=== PATIENT | female | born 1975 | race Caucasian/White ===

== ENCOUNTER 2017-05-31 21:45 | Emergency (ER) | payer OTHER ==
[~2017-05-31] VITALS: Ht 162.6 cm; Wt 77.1 kg
[2017-05-31] MEDS ORDERED: METOPROLOL TART25 MG ×2 (22:07→22:08)
[2017-05-31] MEDS ORDERED: LOSARTAN POTASS25 MG (22:07)
--- NOTE | 2017-06-01 18:06 | EKG ---
[facility] [address] [facility] [address] [facility] [place] [address] Signed Sinus tachycardia Otherwise normal ECG No previous ECGs available Confirmed by PORFIRIO YAN MD ([id number]) on 06/01/2017 6:06:19 PM Electronically Signed By: PORFIRIO YAN MD 06/01/17 1806 PATIENT NAME: LYLE MELLO Electrocardiogram DATE OF : 73 PHYSICIAN: PORFIRIO YAN MD REPORT #: [id number] REPORT IS CONFIDENTIAL AND NOT TO BE RELEASED WITHOUT AUTHORIZATION
[2017-06-03] MEDS ORDERED: LOSARTAN POTASS25 MG PO (12:08)
[2017-06-03] MEDS ORDERED: BACLOFEN10 MG PO (14:24)
[2017-06-03] MEDS ORDERED: CIPRO250 MG PO (14:24)
== END 2017-05-31 23:50 | disposition home or self-care (01) ==
LOC: ED 21:45
DX: R07.9 Chest pain, unspecified (principal); I10 Essential (primary) hypertension; Z88.8 Allergy status to other drugs, medicaments and biological substances; Z79.899 Other long term (current) drug therapy
CPT/HCPCS: 71010; 80053; 84484; 85025; 85379; 93005; 93010; 99284

== ENCOUNTER 2017-06-07 09:26 | Observation (INO) | payer OTHER ==
[~2017-06-07] VITALS: Ht 162.6 cm; Wt 76.2 kg
[~2017-06-07 09:26] MED LIST: BACLOFEN10 MG PO; CIPRO250 MG PO; LOSARTAN POTASS25 MG; LOSARTAN POTASS25 MG PO; METOPROLOL TART25 MG
[2017-06-07] MEDS ORDERED: METOPROLOL TART25 MG PO (11:17)
--- NOTE | 2017-06-07 11:39 | NUR ---
IV STARTED AND GAVE 10MLS OF BLOOD TO SPECIAL DAY CLASS TEACHER. IV SITE FLUSHED WELL. IV SITE SALINE LOCKED AT THIS TIME.
--- NOTE | 2017-06-07 11:50 | NUR ---
ADMITED TO ROOM 130 VIA W/C WITH HER DAUGHTER AT THE BEDSIDE. PT VERY TALKATIVE AND APPEARS TO BE COMFORTABLE. WHEN ASKED IF SHE HAS CP PAIN YES! 01/25 AND GOES TO MY BACK AND SOMETIMES TO MY LEFT ARM. DR YAN INTO SEE PT AT THIS TIME. SOL GARCIA INPLACE AT THIS TIME.
--- NOTE | 2017-06-07 13:30 | NUR ---
PT PLACED ON TELE # 4 DUE TO SHE WILL NEED TO GO TO IMAGING FOR A TEST THIS AFTERNOON. PT REMAINS NPO AT THIS TIME. TWO WARM BLANKETS GIVEN AT THIS TIME. PT IN BED READING BOOK. LR BOLUS COMPLETED AT THIS TIME. AND PRIMARY FLUIDS RUNNING AT THIS TIME.
--- NOTE | 2017-06-07 14:59 | NUR ---
pt to xr at 1430 via wc.
--- NOTE | 2017-06-07 15:13 | NUR ---
PT RETURNED FROM XRAY, CLEAR LIQUID TRAY ORDERED AND FRESH ICE WQATER GIVEN AT THIS TIME. PT ABLE TO GET SELF FROM W/C TO BED WITHOUT ASSISTANCE. PT ENCOURAGED TO DRINK FLUIDS TO HELP MOVE THE BERRIUM THROUGHT HER SYSTEM.
--- NOTE | 2017-06-07 15:48 | NUR ---
PT WORKING ON HER CLEAR LIQUID TRAY AT THIS TIME. FAMILY INTO VISIT AT THIS TIME. PT ASKING FOR SOME KIND OF MEDICATION TO HELP WITH SLEEP TONIGHT. PT HAS NOT C/O CHEST PAIN AT THIS TIME.
--- NOTE | 2017-06-07 16:05 | NUR ---
REPORT CALLED TO BOSSMAN ABDULLAHI ALL QUESTIONS ANSWERED AT THIS TIME. PT TRANSFERTED TO ROOM 117 AT THIS TIME WITH ALL PERSONAL BELONGINGS. PT DAUGHTER PRESENT ALSO WITH PT AND WALKED TO THE THE ROOM WITH STAFF.
--- NOTE | 2017-06-07 16:35 | NUR ---
PATIENT TO FLOOR VIA BED.DENIES PAIN AT THIS TIME. REPORTS MILD DIZZINESS WHILE STANDING TO GO THE BATHROOM. IV FLUID INFUSING WELL, TELE IN PLACE.NO APPARENT DISTRESS.
--- NOTE | 2017-06-07 17:30 | NUR ---
PATIENT RESTING IN BED,REPORT MILD NAUSEA, DENIES THE NEED FOR ANTIEMETIC MED. REPORTS MILD EPIGASTRIC PAIN. ASSESSMENT DONE. FAMILY AT BEDSIDE. BEEF BROTH AND TEA PER PATIENT REQUEST
--- NOTE | 2017-06-07 18:37 | NUR ---
PATIENT TRANSFER FROM CCU TO MED-SURG THIS PM. REPORTS 2/10 EPIGASTRIC PAIN.MILD NAUSEA AND DENIES THE NEEDS FOR ANTIEMETIC MED. TELE#[address] IV FLUID INFUSING WELL. INDEPENDENT IN ROOM.
--- NOTE | 2017-06-07 19:30 | NUR ---
RECIEVED REPORT FROM DAY SHIFT NURSE. PT RESTING IN BED. STATES SHE FEELS A LITTLE "DIZZY." TOLD HER NOT TO GET OOB WITHOUT A NURSE. PT AWARE OF CALL LIGHT. NO NEEDS AT THIS TIME.
--- NOTE | 2017-06-07 20:10 | NUR ---
NURSE NOTIFIED RE VITAL SIGNS.
--- NOTE | 2017-06-07 20:15 | NUR ---
PT RESTING IN BED. INTERMEDIATE TEACHER OBTAINED BP WHICH WAS ELEVATED. ADMINISTERED CARDIZEM, WILL RECHECK IN 1 HOUR. LUNGS CLEAR, HR REGULAR, NO EDEMA, FAINT BUT PALPABLE PEDAL PULSES. PT STATES HER ARMS FEEL VERY WEAK AND SHE JUST "DOESNT FEEL GOOD." I TOLD HER THERE IS NAUSEA MEDICATION AVAILABLE IF SHE IS FEELING NAUSEOUS, PT DENIES AT THIS TIME. PT DENIES FURTHER NEEDS. CALL [place] IN REACH.
--- NOTE | 2017-06-07 21:20 | NUR ---
SERIALS LIBRARIAN RECHECKED BP. CALLED MD WITH RESULTS. OBTIANED NEW ORDER FOR BP MED.
--- NOTE | 2017-06-07 21:57 | NUR ---
PT UP TO BATHROOM WITH SBA. STEADY ON HER FEET. STATES SHE FEELS "FUNNY" LIKE HER BODY IS HEAVY.PT VOIDED. BACK TO BED. DENIES FURTHER NEEDS.
--- NOTE | 2017-06-07 23:08 | NUR ---
OBTAINED BP. BP STILL ELEVATED. PT ALSO C/O PAIN /10 IN HER CHEST AND BACK-STATES IT HAS BEEN THE SAME PAIN WHICH SHE HAS BEEN HAVING. NO C/O HEARTBURN. CALLED , OBTIANED ORDER. PT ALSO C/O FEELING THAT HER "EYES ARE GOING TO BULGE OUT OF HER HEAD." MD AWARE. CALL RAINA IN REACH.
--- NOTE | 2017-06-07 23:40 | NUR ---
PT WAS ALSO C/O FEELING ANXIOUS. I HAD TO CALL MD BACK TO INFORM HIM. OBTAINED ORDER FOR ATARAX PRN ANXIETY. PT RESTING IN BED. STATES HER EYES STILL FEEL LIKE THEY ARE BULGING. PT STATES THIS HAPPENS TO HER AT HOME SOMETIMES. ADMINISTERED 1 X DOSE OF CARDIZEM AND ATARAX. WATER PITCHER FILLED. PT DENIES FURTHER NEEDS. CALL LIGHT IN REACH.
--- NOTE | 2017-06-08 01:15 | NUR ---
PT RESTING IN BED. STATES HER EYES DONT FEEL LIKE THEY'RE BULGING ANYMORE, BUT SHE FEELS LIKE HER HEART IS BEATING FAST. PULSE RATE 100-110 AT REST, PT STATES SHE THINKS SHE WOULD FEEL BETTER IF SHE WENT FOR A WALK. AMBULATED PT AROUND M/S HALLWAY. ADMINISTERED MORE ATARAX TO HELP HER RELAX. WHEN I FIRST CAME INTO THE ROOM I CHECKED HER PULSE RATE AND IT WAS ABOUT 115, I SAT AND TALKED WITH HER IT WENT DOWN TO 100. PT VOIDED, BACK TO BED. DENIES NEEDS. CALL LIGHT IN REACH.
--- NOTE | 2017-06-08 03:38 | NUR ---
PT RESTING. STATES SHE FEELS BETTER. NO C/O PAIN. LUNGS CLEAR, HR REG, BS ACTIVE. DENIES NEEDS. NEW BAG IVF INFUSING. CALL [place] IN REACH.
--- NOTE | 2017-06-08 04:45 | NUR ---
PT SLEEPING. IVF INFUSING W/O DIFFICULTY, CALL LIGHT IN REACH.
--- NOTE | 2017-06-08 06:33 | NUR ---
PT RESTING IN BED. STATES SHE SLEPT VERY WELL LAST NIGHT AFTER I GAVE HER SECOND DOSE OF ATARAX. PT HAS NO C/O AT THE MOMENT, STATES SHE FEELS GOOD THIS MORNING. I TOLD HER NOT TO DRINK ANYTHING AFTER 8AM FOR THE PROCEDURE. PT VERBALIZED SHE UNDERSTOOD. DELIVERED HOT TEA AND JELLO. PT DENIES FURTHER NEEDS. CALL LIGHT IN REACH.
--- NOTE | 2017-06-08 09:11 | NUR ---
REPORT RECIEVED FROM BRADLY OCHOA. PT UP IN RESTROOM. AMBULATES WELL ON OWN. NO REPORTS OF DIZZINESS. BP STILL HIGH. ADMINISTERED CARDIZEM WITH SMALL SIP OF WATER.
--- NOTE | 2017-06-08 09:44 | CONS ---
[facility] [address], [place] [address] Signed DATE OF CONSULTATION: 06/07/2017 CONSULTING PHYSICIAN: Kelvin Koehler MD PROBLEM: Substernal severe pain, persistent, recurrent. HISTORY: This 41-year-old white woman was admitted by Dr. Castrejon today. She is an acquaintance of Lore Cabral MD, radiologist at [facility]. I was called by Dr. Cabral yesterday (Wednesday) asking for assistance with this patient, who had been to the emergency room several days previously for rather severe substernal pain. A rather comprehensive workup had been undertaken at that time, including an MRI of the head, neck, and chest, as she did have some vague numbness and tingling of the arms, EKG and enzyme to rule out myocardial infarction. She did undergo a cardiac stress test, which was negative. She had recurrent substernal pain and I saw her in my office yesterday and my assessment at that time was that she likely had esophageal spasm. As it turns out, I performed upper endoscopy on her in 2007, at which time she had a small hiatal hernia. The patient had recently been prescribed metoprolol for hypertension. She had for at least 20 years been trying to use a naturopathic approach to hypertension control. A plan was outlined for upper endoscopy to be performed tomorrow on June 08. Plans were initiated for this, but in trying to call and set up the details today in the office, she was nowhere to be found including at work. We subsequently found out that she had been admitted for observation under the direction of Dr. Castrejon and she had recurrent symptoms of substernal pain, which resulted in hypotension after taking nitroglycerin, which had been prescribed. I initiated Prilosec 20 mg a day yesterday and she admits that it has helped quite a bit. She is now in the hospital under observation showing no sign of arrhythmia or other similar problem. She feels much better than she did. Consideration is made for following through with the upper endoscopy as planned. Today in the hospital, she did undergo an upper GI under the order of Dr. Castrejon and interpreted by Dr. Cabral. I have reviewed that film, which does show a small hiatal hernia. No elicited reflux, however and no other anomalies, specifically corkscrew appearance or anything of that sort. PAST MEDICAL HISTORY: Does include hypertension, now getting under control. Prior Electronically Signed By: KELVIN KOEHLER MD 06/08/17 0944 PATIENT NAME: LYLE MELLO CONSULTATION DATE OF : 73 PHYSICIAN: KELVIN KOEHLER MD REPORT #: [id number] REPORT IS CONFIDENTIAL AND NOT TO BE RELEASED WITHOUT AUTHORIZATION [facility] [address] [place] [id number] Signed history of hiatal hernia without significant symptoms. SOCIAL HISTORY: She is . She is accompanied by her and other children. 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 REVIEW OF SYSTEMS: She has had no hematemesis or blood per rectum. Her pain has been epigastric and substernal primarily, some interscapular pain previously and some vague left upper abdominal pain as well. PHYSICAL EXAMINATION: GENERAL: She looks alert and oriented at this time. No sign of toxicity. NECK: Trachea is midline. LUNGS: She shows no sign of tachypnea. No audible wheeze. HEART: Regular. ABDOMEN: Nondistended and soft. EXTREMITIES: No clubbing, cyanosis, or edema. LAB STUDIES: At admission showed white count of 9.5, hematocrit 43.8, platelets 404,000. Electrolytes are normal. Sedimentation rate is elevated at 22. Liver enzymes normal. Protein 8.4, globulin 3.7. 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 She has shown no evidence of myocardial ischemia or anything of that sort. She does have hypertension, which is becoming under control at this time. I would recommend upper endoscopy be followed through with tomorrow as already scheduled. The risks of bleeding, infection, and perforation have been reviewed with her previously and were reviewed again. If she does have clinical appearance consistent with esophageal spasm, she may benefit markedly from a diltiazem based regimen as well as PPI medication. In general, 30 mg diltiazem t.i.d. This would be beneficial for esophageal spasm as well as hypertension, which she does have. We will plan to proceed with upper endoscopy tomorrow as planned. She can have diet as tolerated until midnight. After midnight, clear liquids only up until 8 a.m. Electronically Signed By: KELVIN KOEHLER MD 06/08/17 0944 PATIENT NAME: LYLE MELLO CONSULTATION DATE OF : 73 PHYSICIAN: KELVIN KOEHLER MD REPORT #: [id number] REPORT IS CONFIDENTIAL AND NOT TO BE RELEASED WITHOUT AUTHORIZATION [address] [address] Signed MD LOURDES Resendez/MODL /[id number] cc: Sarath Castrejon MD Electronically Signed By: KELVIN KOEHLER MD 06/08/17 0944 PATIENT NAME: FUNMILAYOLYLE VAIBHAV CONSULTATION DATE OF : 73 PHYSICIAN: KELVIN KOEHLER MD REPORT #: [id number] REPORT IS CONFIDENTIAL AND NOT TO BE RELEASED WITHOUT AUTHORIZATION
--- NOTE | 2017-06-08 10:42 | NUR ---
PATIENT UP TO BATHROOM AND BACK TO BED. REFUSED SHOWER. PATIENT HAS TOOTH BRUSH AND PASTE SET UP AT SINK. HANDS AND FACE WASHED. NO OTHER NEEDS AT THIS TIME.
--- NOTE | 2017-06-08 13:35 | NUR ---
PATIENT UP TO VOID. LR ON STRAIGHT TUBING HOOKED UP. PATIENT TO SURGERY WITH NURSE BRADLY GARCIA.
--- NOTE | 2017-06-08 14:17 | NUR ---
PT STILL OFF FLOOR WITH SURGERY. TAKEN TO DAY SURGERY AREA.
--- NOTE | 2017-06-08 15:15 | NUR ---
PT BACK TO FLOOR VIA STRETCHER WITH SURGERY RN. PT DROWSY BUT EASILY AWAKENED. DENIES PAIN. VS STABLE.
[2017-06-08] MEDS ORDERED: PANTOPRAZOLE SO40 MG PO (16:40)
[2017-06-08] MEDS ORDERED: DILTIAZEM ER180 MG PO (16:40)
--- NOTE | 2017-06-08 18:59 | NUR ---
PT DISCHARGED HOME WITH . IV REMOVED WNL. PT VERBALIZED UNDERSTANDING. VS STABLE. BELONGINGS SENT WITH PT. DENIES PAIN OR CONCERNS OR QUESTIONS.
--- NOTE | 2017-06-15 12:51 | OR ---
[facility] [address], [place] [address] Signed DATE OF OPERATION: 06/08/2017 SURGEON: Kelvin Koehler MD PREOPERATIVE DIAGNOSES: 1. Episodic severe disabling substernal pain, clinically consistent with esophageal spasm. 2. Known prior history of hiatal hernia. POSTOPERATIVE DIAGNOSES: Normal-appearing esophageal mucosa and moderate-sized hiatal hernia. PROCEDURE: Esophagogastroduodenoscopy with biopsy. ANESTHESIA: Intravenous sedation, fentanyl 100 mcg, Versed 3 mg. INDICATION: This 41-year-old white woman has been hospitalized since yesterday under the direction of Dr. Castrejon. I saw her on Wednesday on the weekend with over a week of episodes of substernal severe pain and interscapular pain. She has already undergone an MRI of the head, neck, and chest, which was normal as well as a cardiac stress test organized after emergency room visit, which was normal. She clinically has findings consistent with esophageal spasm related to reflux. I have performed upper endoscopy on her in 2007, which showed hiatal hernia, but no significant esophagitis. She is hospitalized having had recurrent symptoms yesterday and having taken nitroglycerin as prescribed, which caused possibly some lightheadedness. Since hospitalization, she has had no severe episodes and she does think that Prilosec, which was been prescribed, has improved her situation overall. It was previously anticipated she undergo upper endoscopy today and though she is hospitalized at this time, upper endoscopy would be appropriate. The risks of bleeding, infection, and perforation related to upper endoscopy were reviewed and understood. FINDINGS: Esophageal mucosa was entirely normal. There was no sign of Adkins's epithelium or neoplasm. There was definitely hiatal hernia, moderate in size. The stomach and duodenum were grossly normal. CLOtest was negative. DESCRIPTION OF PROCEDURE: The patient was brought to the endoscopy suite and given Electronically Signed By: KELVIN KOEHLER MD 06/15/17 3941 PATIENT NAME: LYLE MELLO OPERATIVE REPORT DATE OF : 73 PHYSICIAN: KELVIN KOEHLER MD REPORT #: [id number] REPORT IS CONFIDENTIAL AND NOT TO BE RELEASED WITHOUT AUTHORIZATION [facility] [address], [place] [address] Signed topical Hurricaine spray, hypopharyngeal anesthesia, and placed in lateral decubitus position. A bite block was placed after satisfactory intravenous sedation with full cardiopulmonary monitoring. An Olympus video upper endoscope was passed in the hypopharynx. The vocal cords appeared normal. The scope was advanced to the esophagus. Throughout its length, it was entirely normal. Scope was passed into the stomach, which was insufflated with air. Rugal folds appeared normal. The pylorus was normal. Scope was passed through it into the duodenum, which was also normal. Biopsies were taken of the duodenum and antrum for both PATRICIA and pathologic testing for the latter. Retroflexed view was undertaken, confirming a moderate-sized hiatal hernia. Further withdrawal of scope into the distal esophagus confirmed no evidence of Adkins's epithelium, inflammation, stricture, neoplasm, varices, or other issues. Biopsies were taken of the distal esophageal mucosa and the midportion. Upon withdrawal of the scope, careful inspection of the proximal esophagus showed no sign of neoplasm, Adkins's epithelium, or other abnormality. The scope was removed, and the patient was taken to the recovery room in good condition. CONCLUDING DIAGNOSIS: Most likely was esophageal spasm. This is likely reflux related. PLAN: Recommend PPI medication, Prilosec 20 mg daily and strong consideration for diltiazem 30 mg p.o. t.i.d. She will return to the regular [place] and may be a candidate for discharge later today depending on Dr. Castrejon's preference. MD LOURDES Resendez/CANDYL /[id number] cc: MD Lore Sloan MD Electronically Signed By: KELVIN KOEHLER MD 06/15/17 1251 PATIENT NAME: LYLE MELLO OPERATIVE REPORT DATE OF : 73 PHYSICIAN: KELVIN KOEHLER MD REPORT #: [id number] REPORT IS CONFIDENTIAL AND NOT TO BE RELEASED WITHOUT AUTHORIZATION [facility] [address] [place] [address] Signed KATIANA Spivey Electronically Signed By: KELVIN KOEHLER MD 06/15/17 1251 PATIENT NAME: LYLE MELLO OPERATIVE REPORT DATE OF : 73 PHYSICIAN: KELVIN KOEHLER MD REPORT #: [id number] REPORT IS CONFIDENTIAL AND NOT TO BE RELEASED WITHOUT AUTHORIZATION
== END 2017-06-08 18:45 | disposition home or self-care (01) ==
LOC: MS 09:26 → CCU 10:39 → MS 10:39 → CCU 10:39 → MS 16:25
PROVIDERS: Surgery; ADMIT Internal Medicine
PROC: 0DB78ZX Excision of Stomach, Pylorus, Via Natural or Artificial Opening Endoscopic, Diagnostic (ICD-10-PCS; 2017-06-08)
PROC: 0DB28ZX Excision of Middle Esophagus, Via Natural or Artificial Opening Endoscopic, Diagnostic (ICD-10-PCS; 2017-06-08)
PROC: 0DB38ZX Excision of Lower Esophagus, Via Natural or Artificial Opening Endoscopic, Diagnostic (ICD-10-PCS; 2017-06-08)
PROC: 0DB98ZX Excision of Duodenum, Via Natural or Artificial Opening Endoscopic, Diagnostic (ICD-10-PCS; principal; 2017-06-08 17:00)
DX: K21.0 Gastro-esophageal reflux disease with esophagitis (principal); K44.9 Diaphragmatic hernia without obstruction or gangrene; I10 Essential (primary) hypertension; E78.5 Hyperlipidemia, unspecified; Z79.899 Other long term (current) drug therapy; Z88.8 Allergy status to other drugs, medicaments and biological substances
CPT/HCPCS: 74230; 80053; 83735; 85025; 85651; 86140; 96361; 96374; 96376; 99152; 99153; G0378; J2250; J3010; J7120

== ENCOUNTER 2024-06-06 13:18 | Observation (INO) | payer OTHER ==
[~2024-06-06] VITALS: Ht 162.6 cm
[~2024-06-06 13:18] MED LIST changes: +CHLORTHALIDONE25 MG PO; +DILTIAZEM ER180 MG PO; +METOPROLOL TAR100 MG PO; +METOPROLOL TART25 MG PO; +PANTOPRAZOLE SO40 MG PO
--- OUTSIDE RECORDS SUMMARY | 2024-06-06 13:22 | XMS ---
PreManage Notification: LYLE MELLO Security Engineering Program Analyst Events No recent Security Events currently on file CRITERIA MET - [facility] - 2 Visits in 30 Days CARE PROVIDERS KISHORE GARZA Emergency Medicine Current PHONE: [phone] PORFIRIO YAN Internal Medicine Current PHONE: [phone] [facility]: [facility] Current \F\ [facility] PHONE: [phone] Doug has no Care Guidelines for this patient. E.D. VISIT COUNT (12 MO.) 2 KENAN Resendiz TOTAL 2 NOTE: Visits indicate total known visits. ED/UCC VISIT TRACKING (12 MO.) 06/06/2024 13:18 [facility] [place] TYPE: Emergency COMPLAINT: - BLOOD PRESSURE PROBLEM 06/04/2024 14:46 [facility] [place] TYPE: Emergency COMPLAINT: - FAINT DIAGNOSES: - Allergy status to other drugs, medicaments and biological substances - Dizziness and giddiness - Essential (primary) hypertension - Other usp (current) drug therapy - Syncope and collapse INPATIENT VISIT TRACKING (12 MO.) No inpatient visits to display in this time frame [email or web address]
[2024-06-06 13:48] LABS: BASOPHILS 0.6 % (0-2); EOSINOPHILS 1.3 % (0-6); HEMATOCRIT 40.1 % (35.0-50.0); HEMOGLOBIN 13.8 g/dL (12.0-18.0); LYMPHOCYTES 36.6 % (24-44); MCH 33.1 (27-36); MCHC 34.4 g/dl (30-36); MCV 96.1 fl (81-99); NEUTROPHILS 54.5 % (39-80); PLATELET COUNT 454 K/uL (140-440); RBC 4.17 M/ul (4.3-5.7); RDW 12.6 (10.5-15.0)
[2024-06-06] MEDS ORDERED: hydrALAZINE HCL 20 MG/ML VIAL IV PRN (14:00)
[2024-06-06 14:07] LABS: BILIRUBIN, URINE NEGATIVE (negative); BLOOD/HGB, URINE NEGATIVE (Negative); KETONE, URINE NEGATIVE (Negative); LEUK ESTERASE, URINE NEGATIVE (negative); NITRITE, URINE NEGATIVE (negative)
[2024-06-06 14:13] LABS: ALBUMIN 3.8 g/dL (3.4-5.0); ALBUMIN/GLOBULIN RATIO 0.95 (1.1-2.4); ANION GAP 16.2 (7-21); BILIRUBIN, TOTAL 0.4 ng/dL (0.2-1.0); BUN/CREATININE RATIO 17.97 (6.0-28.6); CALCIUM 9.2 mg/dL (8.5-10.1); CREATININE, SERUM 0.89 mg/dL (0.55-1.02); POTASSIUM 3.2 mmol/L (3.5-5.1); PROTEIN, TOTAL 7.8 g/dL (6.4-8.2); TSH, 3RD GENERATION 1.195 uIU/mL (0.358-3.740)
[2024-06-06 14:17] LABS: BACTERIA, URINE NONE SEEN /hpf (negative); CASTS, URINE NONE SEEN \\lpf; COLLECTION TYPE, URINE CLEAN CATCH; CRYSTALS, URINE NONE SEEN (0-1+); EPITHELIAL CELLS, URINE NONE SEEN /lpf (0-1+); RED BLOOD CELLS, URINE 0-1 /hpf (0-5); REFLEX CULTURE, URINE No (No)
[2024-06-06 14:31] LABS: AMPHETAMINES, URINE NEGATIVE (NEGATIVE); BARBITURATES, URINE NEGATIVE (NEGATIVE); BENZODIAZEPINE, URINE NEGATIVE (NEGATIVE); BUPRENORPHINE, URINE NEGATIVE (NEGATIVE); CANNABINOID, URINE NEGATIVE (NEGATIVE); COCAINE, URINE NEGATIVE (NEGATIVE); ECSTASY, URINE NEGATIVE (NEGATIVE); FENTANYL, URINE NEGATIVE (NEGATIVE); METHADONE, URINE NEGATIVE (NEGATIVE); OPIATES, URINE NEGATIVE (NEGATIVE); OXYCODONE, URINE NEGATIVE (NEGATIVE); PHENCYCLIDINE, URINE NEGATIVE (NEGATIVE)
[2024-06-06 14:34] LABS: INFLUENZA B NAA NEGATIVE (NEGATIVE); RESPIRATORY SYNCYTIAL VIR NAA NEGATIVE (NEGATIVE)
[2024-06-06] MEDS ORDERED: METOPROLOL TARTRATE 5 MG/5 ML VIAL IV SCH (15:15)
[2024-06-06] MEDS ORDERED: POTASSIUM CHLORIDE 10 MEQ TABCR PO ONE (19:00)
[2024-06-06] MEDS ORDERED: ondansetron HCL 4 MG/2 ML VIAL IV PRN (19:45)
[2024-06-06] MEDS ORDERED: ACETAMINOPHEN 325 MG TAB PO PRN (19:45)
[2024-06-06 19:48] VITALS: BP 152/91
[2024-06-06] MEDS ORDERED: carvediloL 6.25 MG TAB PO SCH (21:00)
[2024-06-06] MEDS ORDERED: MELATONIN 3 MG TAB PO PRN (21:00)
--- NOTE | 2024-06-06 21:09 | NUR ---
Patient to the medical floor. Patient is alert and oriented x4 at this time. Patient reports a headache, tylenol 650mg po admin for pain. Patient is on room air, respirations non labored, sp02 99% at this time. Patient reports she is unable to move her arms and legs. Pt notable able to grasp bed railing with her right hand when she was placed on side to remove sheets. Pure wick placed at this time. Pt reports cpap use at home. Patient is unable to demonstrate lifting arms when I asked her to remove mask. CPAP not placed at this time for aspirations concerns. Patient receptive to plan of care. CPOx in place for oxygen monitoring. Pt close to RN soha. Head of bed elevated at this time, alarm intact.
[2024-06-06] MEDS ORDERED: LACTATED RINGER'S 1,000 ML IV SCH (21:30)
--- NOTE | 2024-06-06 21:38 | NUR ---
NICHOLAS from Dr. Gomez to start LR@ 100ml/hr continuous and to do a stat CT of head without contrast, and a CTA of head and neck with contrast. Called and verified order input with imaging department.
--- NOTE | 2024-06-06 22:52 | NUR ---
Patient returned from imaging. Reported needing bathroom assistance. Purewick reattached.
--- NOTE | 2024-06-06 23:03 | NUR ---
Fresh water provided to patient. IV fluids infusing per order. Patient sitting up in bed, hob elevated, swallow reflex intact. Patient continues to report she cannot move her limbs. cpox intact, sp02 98% on room air.
[2024-06-06 23:16] VITALS: BP 152/91
--- NOTE | 2024-06-07 00:25 | NUR ---
HOURLY ROUNDING-PT AWAKE IN BED MOVING ARMS AND LEGS FREELY. PATIENT REPORTS SHE IS ABLE TO MOVE HER LEGS AND ARMS NOW. PT STATES SHE IS FEELING PHYSICALLY STRONGER NOW. PT REQUESTING CPAP TO BE PLACED SO SHE CAN SLEEP. RT NOTIFIED AT THIS TIME.
[2024-06-07 02:00] VITALS: BP 136/81
--- NOTE | 2024-06-07 04:34 | NUR ---
Patient awake, no acute distress. RT at bedside speaking to patient. Patient denies pain at this time. Patient continues to move her extremities freely. IV fluids infusing per order.
[2024-06-07 05:27] LABS: BASOPHILS 0.8 % (0-2); EOSINOPHILS 1.1 % (0-6); HEMATOCRIT 39.5 % (35.0-50.0); HEMOGLOBIN 13.3 g/dL (12.0-18.0); LYMPHOCYTES 27.7 % (24-44); MCH 32.7 (27-36); MCHC 33.7 g/dl (30-36); MCV 97.2 fl (81-99); MONOCYTES 9.3 % (0-12); NEUTROPHILS 61.1 % (39-80); PLATELET COUNT 398 K/uL (140-440); RBC 4.06 M/ul (4.3-5.7); RDW 12.9 (10.5-15.0)
[2024-06-07 05:36] LABS: ANION GAP 16.5 (7-21); BUN/CREATININE RATIO 14.45 (6.0-28.6); CALCIUM 8.5 mg/dL (8.5-10.1); CREATININE, SERUM 0.83 mg/dL (0.55-1.02); POTASSIUM 3.5 mmol/L (3.5-5.1)
[2024-06-07 06:20] VITALS: BP 145/77
--- NOTE | 2024-06-07 06:20 | NUR ---
Patient sitting up in bed on her phone, no visible distress. Patient reports her arms are feeling "heavy again". Patient encouraged rest at this time. Head of bed elevated, airway patent, swallow intact. Patient provided with tylenol 650mg po for reports of 5/10 headache.
--- NOTE | 2024-06-07 07:37 | NUR ---
RECEIVED REPORT FROM GALILEO RN, PT RESTING WITH EYES CLOSED, OPENED WHEN ENTERED ROOM. IV FLUIDS INFUSING, CPOX IN PLACE-SATS 96% ON RA. PT DENIES ANY NEEDS AT THIS TIME, CALL LIGHT WITHIN REACH.
--- NOTE | 2024-06-07 07:59 | NUR ---
UR CLINICAL REVIEW: [facility] OBS ADMISSION CRITERIA [facility] OBS 06/06/24 @ 1319 ORDER MATCHES REG NO AUTH REQUIRED FOR OBS STAY DISCHARGE TO HOME PENDING ABD CT AND PT/OT EVAL 06/08/24
[2024-06-07] MEDS ORDERED: POTASSIUM CHLORIDE 10 MEQ TABCR PO ONE (09:00)
[2024-06-07] MEDS ORDERED: ENOXAPARIN SODIUM 40 MG/0.4 ML SYR SUB-Q SCH (09:00)
[2024-06-07 09:54] VITALS: BP 139/85
[2024-06-07] MEDS ORDERED: LACTATED RINGER'S 1,000 ML IV ONE (10:00)
--- NOTE | 2024-06-07 10:51 | NUR ---
PT GIVEN MORNING MEDS, ALL HER HOME VITAMINS ARE AT BEDSIDE, MD/PHARMACY INFORMED. PT ADVISED NOT TO TAKE ANY EXTRA MEDICATIONS FROM HOME. LR BOLUS STARTED AT THIS TIME. PT DENIES PAIN. REQUESTING WITH BOLUS THAT WE PLACE THE PUREWICK IN SHE MAY HAVE URGENCY AND WITH HER ABILITY TO MOVE SHE DOES NOT WANT TO BE INCONTINENT. ASSESSMENT BENIGN OTHER THAN THAT WEAKNESS IN EXTREMITIES THAT SHE IS REPORTING, SHE WAS ABLE TO WIGGLE TOES AND LIFT FEET, MOVE HER HANDS BUT SHE APPEARED TO BE UNABLE TO MOVE THE (R) AND THEN WHEN HANDED PILLS SHE TOOK THOSE FORM MY HANDS BUT PULLED BACK SLIGHTLY. AFTER BOLUS PT INFORMED WE WILL REMOVE THE PUREWICK AND SHE IS ENCOURAGED TO GET OUT OF BED EVEN TO BSC FOR ELIMINATION NEEDS.
--- NOTE | 2024-06-07 11:11 | NUR ---
NEW ELIS WAS PUT ON PT @1100 AND PT DIDNT NEED ANYTHING ELSE. CALL LIGHT IS WITHIN REACH.
--- NOTE | 2024-06-07 11:29 | NUR ---
VISITED DURING SPIRITUAL CARE ROUNDS. PT APPEARED TO BE SLEEPING. DID NOT DISTURB. PROVIDED PRAYER.
[2024-06-07 11:49] VITALS: BP 139/85
[2024-06-07] MEDS ORDERED: PHARMACY RENAL DOSE ADJUSTMENT 1 DOSE MISC PO SCH (12:00)
--- NOTE | 2024-06-07 12:59 | NUR ---
PT ASSISTED OUT OF BED, SHE WAS ABLE TO GET UP AND INTO WC WITH 1PA, SHE STATED SHE COULD NOT MOVE HER RIGHT ARM/LEG, BUT WHEN GETTING OUT OF BED MINIMAL ASSIST WAS NEEDED TO STAND UP OUT OF BED, HAND HELD AND SHE WAS ABLE TO MOVE HER FEET AND STEP OVER INDEPENDENTLY TO THE WHEELCHAIR. IV LOCKED, PUREWICK REMOVED. PT LEFT FLOOR WITH ANSWERER. LINEN CHANGED ON BED.
--- NOTE | 2024-06-07 14:00 | NUR ---
PATIENT ALERT AND ORIENTED IN BED. STATES SHE LIVES IN HOUSE WITH AND CHILDREN. DOES HAVE A DISABLE 10 YEAR OLD SON AT HOME SO THERE IS A RAMP TO GET INSIDE. SHE HAS A CPAP, NO OTHER DME. SHE DRIVES AT [place]. SHE ALSO DENIES ANY FINANCIAL HARDSHIP. PATIENT AND SPOUSE STATE THEY ARE ABLE TO PAY UTILITES, OBTAIN FOOD AND MEDICATIONS. SHE WORKS A CHARGE ENTRY CLERK. SHE ALSO STATES THEY HAVE A BATHTUB, BUT ARE REMODELING THIER BATHROOM FOR A SHOWER TO ASSIST WITH HER SON. DISCUSSED OPTIONS FOR POTENTIAL OUTPATIENT VS SNF OR INPATIENT REHAB PENDING PT/OT AND MRI FINDINGS. PATIENT OK WITH ANYTHING SHE NEEDS TO DO. VOICES CONCERN ABOUT HER INABILITY TO MOVE EXTREMITIES. PATIENT'S SPOUSE REQUESTS INFORMATION ABOUT [place]. INFORMATION PACKET PROVIDED FROM WEBSITE. NO OTHER QUESTIONS AT THIS TIME.
[2024-06-07] MEDS ORDERED: CARVEDILOL6.25 MG PO (14:33)
[2024-06-07 14:42] VITALS: BP 151/99
--- NOTE | 2024-06-07 14:56 | NUR ---
INSURANCE MARKETING SPECIALIST ASSISTED PATIENT TO BEDSIDE COMMODE AND THEN BACK TO BED. INSURANCE MARKETING SPECIALIST CHARTED PATIENTS VOIDINGS ON CHART IN ROOM. CALL LIGHT WITHIN REACH, NO FURTHER NEEDS AT THIS TIME.
--- NOTE | 2024-06-07 15:02 | NUR ---
DISCUSSED WITH PATIENT OUTPATIENT THERAPY OPTIONS. CLINICALS FAXED TO [facility] FOR REFERRAL NEEDED.
[2024-06-07 15:14] VITALS: BP 148/95
[2024-06-08 10:53] LABS: FOLATE,SERUM 6.5 ng/mL (>=5.9)
--- NOTE | 2024-06-08 19:12 | EKG ---
[facility] [address] [facility] [place] [address] Signed Normal sinus rhythm Normal ECG When compared with ECG of 04-JUN-2024 15:57, No significant change was found Confirmed by Guzman Gomez MD ([id number]) on 06/08/2024 7:12:16 PM Electronically Signed By: GUZMAN GOMEZ MD 06/08/241911 PATIENT NAME: LYLE MELLO Electrocardiogram DATE OF : 73 PHYSICIAN: GUZMAN GOMEZ MD REPORT #: [id number] REPORT IS CONFIDENTIAL AND NOT TO BE RELEASED WITHOUT AUTHORIZATION
== END 2024-06-07 16:25 | disposition home or self-care (01) ==
LOC: ED 13:18 → MS 13:19
PROVIDERS: Emergency Medicine; ADMIT Student in an Organized Health Care Education/Training Program; ATTEND Student in an Organized Health Care Education/Training Program
DX: R53.1 Weakness (principal); E87.6 Hypokalemia; I10 Essential (primary) hypertension; Z91.012 Allergy to eggs; Z91.018 Allergy to other foods; Z88.8 Allergy status to other drugs, medicaments and biological substances
CPT/HCPCS: 36415; 70450; 70496; 70498; 70551; 74177; 80048; 80053; 80307; 81001; 82607; 82746; 83690; 83735; 83880; 84443; 84484; 85025; 85379; 85651; 86140; 87502; 93005; 93010; 94660; 94762; 96372; 97162; 97166; 99285-25; A9270; G0378; J0360; J1650; J7121; Q9967; U0002